=== PATIENT | male | born 1950 | race African-American/Black ===

== ENCOUNTER 2023-02-06 17:53 | Inpatient (IN) | payer MEDICARE, OTHER ==
[~2023-02-06] VITALS: Ht 175.3 cm; Wt 82.1 kg
[2023-02-06] MEDS ORDERED: DOCU-141 PO (18:51)
[2023-02-06] MEDS ORDERED: ACET-868 PO (18:51)
[2023-02-06] MEDS ORDERED: SIMV-46 PO (18:51)
[2023-02-06] MEDS ORDERED: GLUC1KIT IM (18:51)
[2023-02-06] MEDS ORDERED: FAMO40TA7 PO (18:51)
[2023-02-06] MEDS ORDERED: TYL2T PO (18:51)
[2023-02-06] MEDS ORDERED: OLAN20TA3 PO (18:51)
[2023-02-06] MEDS ORDERED: METF-440 PO (18:51)
[2023-02-06 19:16] LABS: ALANINE AMINOTRANSFERASE 26 U/L (12-78); ALBUMIN 3.9 g/dL (3.4-5.0); ALCOHOL, BLOOD < 3 mg/dL (0-10); ALKALINE PHOSPHATASE 102 U/L (46-116); ASPARTATE AMINOTRANSFERASE 20 U/L (15-37); BILIRUBIN,DIRECT 0.1 mg/dL (0.0-0.2); BILIRUBIN,TOTAL 0.3 mg/dL (0.2-1.0); CALCIUM, SERUM 9.5 mg/dL (8.5-10.1); CARBON DIOXIDE 28 mmol/L (21-32); CHLORIDE 105 mmol/L (98-107); CREATININE 0.8 mg/dL (0.6-1.3); GLUCOSE 86 mg/dL (74-106); POTASSIUM 3.9 mmol/L (3.5-5.1); SALICYLATE 5.2 mg/dL (2.8-20.0); SODIUM SERUM 138 mmol/L (136-145); TOTAL PROTEIN, SERUM 8.3 g/dL (6.4-8.2); UREA NITROGEN, BLOOD 11 mg/dL (7-18)
[2023-02-06 19:19] LABS: ACETAMINOPHEN 0 ug/ml (10-30)
[2023-02-06 19:20] LABS: BASOPHILS # (AUTO) 0.1 K/uL (0.0-0.2); BASOPHILS % (AUTO) 0.8 % (0.0-2.0); EOSINOPHILS # (AUTO) 0.4 K/uL (0.0-0.7); EOSINOPHILS % (AUTO) 4.6 % (0.0-6.0); HEMATOCRIT 49 % (39-51); HEMOGLOBIN 15.7 g/dL (13.5-17.5); LYMPHOCYTES # (AUTO) 3.2 K/uL (0.8-4.8); LYMPHOCYTES % (AUTO) 41.4 % (20.0-44.0); MEAN CORPUSCULAR HEMOGLOBIN 30 PG (26.0-33.0); MEAN CORPUSCULAR HGB CONC 32 g/dl (31.0-36.0); MEAN CORPUSCULAR VOLUME 94 fL (80-96); MONOCYTES # (AUTO) 0.9 K/uL (0.1-1.30); MONOCYTES % (AUTO) 11.2 % (2.0-12.0); NEUTROPHILS # (AUTO) 3.2 K/uL (1.8-8.9); PLATELET COUNT (AUTO) 266 K/uL (150-450); RED BLOOD CELL COUNT(AUTO) 5.17 MIL/uL (4.5-6.0); RED CELL DISTRIBUTION WIDTH 13.8 % (11.5-15.0); WHITE BLOOD COUNT (AUTO) 7.7 K/uL (4.3-11.0)
[2023-02-06 20:31] LABS: APPEARANCE,URINE CLEAR (CLEAR); BILIRUBIN,URINE NEGATIVE (NEGATIVE); BLOOD, URINE NEGATIVE Ery/uL (NEGATIVE); COLOR,URINE YELLOW (YELLOW); KETONES,URINE NEGATIVE (NEGATIVE); LEUKOCYTE ESTERASE ,URINE NEGATIVE (NEGATIVE); NITRITE, URINE NEGATIVE (NEGATIVE); PH,URINE 5.5 (5.0-8.0); PROTEIN,URINE NEGATIVE (NEGATIVE); UGLUCOSE NEGATIVE (NEGATIVE); UROBILINOGEN,URINE 0.2 EU/dL (0.2)
[2023-02-06 20:37] LABS: AMPHETAMINE, URINE NEGATIVE (NEGATIVE); BARBITURATE, URINE NEGATIVE (NEGATIVE); BENZODIAZEPINE, URINE NEGATIVE (NEGATIVE); CANNABINOID, URINE NEGATIVE (NEGATIVE); COCCAINE, URINE NEGATIVE (NEGATIVE); OPIATE, URINE NEGATIVE (NEGATIVE); PHENCYCLIDINE SCREEN,URINE NEGATIVE (NEGATIVE)
[2023-02-07] MEDS ORDERED: ACETAMINOPHEN 325 MG TABLET PO PRN
[2023-02-07] MEDS ORDERED: IV NS 0.9% 1,000 ML IV PRN
[2023-02-07] MEDS ORDERED: ONDANSETRON HCL/PF 4 MG/2 ML VIAL IVP PRN
[2023-02-07] MEDS ORDERED: INSULIN REGULAR, HUMAN 100 UNIT/ML 3 ML VIAL SQ PRN
[2023-02-07] MEDS ORDERED: DEXTROSE 50%-WATER 50 ML DISP.SYRIN IV PRN
[2023-02-07] MEDS ORDERED: OLANZAPINE 5 MG TABLET PO SCH (02:20)
[2023-02-07] MEDS ORDERED: ENOXAPARIN SODIUM 40 MG/0.4 ML DISP.SYRIN SQ ONE (02:33)
[2023-02-07] MEDS ORDERED: OLANZAPINE 5 MG TABLET ONE ×2 (02:33→03:40)
[2023-02-07] MEDS: ENOXAPARIN SODIUM 40 MG/0.4 ML DISP.SYRIN SQ SCH (03:59)
[2023-02-07] MEDS: BLOOD SUGAR DIAGNOSTIC 1 EACH STRIP IN SCH ×3 (07:30→17:35)
[2023-02-07] MEDS ORDERED: DOCUSATE SODIUM 100 MG CAPSULE PO ONE (08:05)
[2023-02-07] MEDS: DOCUSATE SODIUM 100 MG CAPSULE PO SCH (08:06)
[2023-02-07] MEDS ORDERED: FAMOTIDINE (20 MG) 20 MG TABLET ONE (08:06)
[2023-02-07] MEDS ORDERED: FAMOTIDINE 40 MG TABLET PO SCH (09:00)
[2023-02-07] MEDS ORDERED: ASPIRIN 81 MG TAB.CHEW ONE (10:08)
[2023-02-07] MEDS: ASPIRIN 81 MG TAB.CHEW PO SCH (10:08)
[2023-02-07 20:26] VITALS: O2SAT 95
[2023-02-08] MEDS: BLOOD SUGAR DIAGNOSTIC 1 EACH STRIP IN SCH ×5 (00:19→22:19)
[2023-02-08] MEDS: OLANZAPINE 10 MG TABLET PO SCH ×2 (00:21→22:22)
[2023-02-08] MEDS: ATORVASTATIN 10 MG TABLET PO SCH ×2 (00:21→22:22)
[2023-02-08] MEDS: ENOXAPARIN SODIUM 40 MG/0.4 ML DISP.SYRIN SQ SCH (00:57)
[2023-02-08 08:00] VITALS: BP 124/80; TEMP 97.8; O2SAT 99
[2023-02-08] MEDS: DOCUSATE SODIUM 100 MG CAPSULE PO SCH (08:33)
[2023-02-08] MEDS: ASPIRIN 81 MG TAB.CHEW PO SCH (08:33)
[2023-02-08] MEDS: FAMOTIDINE (20 MG) 20 MG TABLET PO SCH (13:16)
[2023-02-08 16:00] VITALS: BP 121/82; TEMP 98; O2SAT 98
[2023-02-08 20:00] VITALS: BP 135/83; TEMP 97.4; O2SAT 99
[2023-02-09] MEDS: ENOXAPARIN SODIUM 40 MG/0.4 ML DISP.SYRIN SQ SCH ×2 (01:24→22:42)
[2023-02-09 07:30] VITALS: BP 118/73; TEMP 98.1; O2SAT 97
[2023-02-09] MEDS: BLOOD SUGAR DIAGNOSTIC 1 EACH STRIP IN SCH ×4 (07:35→22:16)
[2023-02-09] MEDS: FAMOTIDINE (20 MG) 20 MG TABLET PO SCH (09:13)
[2023-02-09] MEDS: DOCUSATE SODIUM 100 MG CAPSULE PO SCH (09:13)
[2023-02-09] MEDS: ASPIRIN 81 MG TAB.CHEW PO SCH (09:13)
[2023-02-09 16:00] VITALS: BP 126/85; TEMP 97.6; O2SAT 97
[2023-02-09] MEDS: ATORVASTATIN 10 MG TABLET PO SCH (22:07)
[2023-02-09] MEDS: OLANZAPINE 10 MG TABLET PO SCH (22:07)
[2023-02-09] MEDS ORDERED: ENOXAPARIN SODIUM 40 MG/0.4 ML DISP.SYRIN SQ ONE (22:27)
[2023-02-10] MEDS: BLOOD SUGAR DIAGNOSTIC 1 EACH STRIP IN SCH ×2 (06:45→12:05)
[2023-02-10 07:30] VITALS: BP 123/57; TEMP 98.1; O2SAT 99
[2023-02-10] MEDS: FAMOTIDINE (20 MG) 20 MG TABLET PO SCH (08:59)
[2023-02-10] MEDS: DOCUSATE SODIUM 100 MG CAPSULE PO SCH (08:59)
[2023-02-10] MEDS: ASPIRIN 81 MG TAB.CHEW PO SCH (08:59)
[2023-02-10] MEDS ORDERED: ASPI-1169 PO (10:34)
[2023-02-10] MEDS ORDERED: ACET325T53 PO (10:34)
== END 2023-02-10 15:17 | DRG 73 ==
LOC: ER 17:53 → TRANSITION 02-07 01:40 → MED 02-07 20:46
PROVIDERS: ADMIT Nurse Practitioner Acute Care; ATTEND Nurse Practitioner Acute Care
DX: E11.40 Type 2 diabetes mellitus with diabetic neuropathy, unspecified (principal); G93.41 Metabolic encephalopathy; F20.9 Schizophrenia, unspecified; E11.9 Type 2 diabetes mellitus without complications; I10 Essential (primary) hypertension; R62.7 Adult failure to thrive; Z79.84 Long term (current) use of oral hypoglycemic drugs; Z20.822 Contact with and (suspected) exposure to COVID-19; R53.1 Weakness; F17.210 Nicotine dependence, cigarettes, uncomplicated; Z68.26 Body mass index [BMI] 26.0-26.9, adult
CPT/HCPCS: 36415; 70450-TC; 71045-TC; 80048-TC; 80076-TC; 82962-TC; 84484-TC; 85025-TC; 87081-TC; 93307-TC; 93880-TC; 97110-TC; 97112-TC; 97116-TC; 97530-TC; A4223; C9803; G0378; G0480; J1650; J2405; J3490; J7030